=== PATIENT | female | born 1945 | race American Indian/Alaskan Native ===

== ENCOUNTER 2018-01-23 16:45 | Emergency (ER) | payer MEDICARE ==
[2018-01-23 16:51] VITALS: BMI 32.9
[2018-01-23 16:54] VITALS: BP 174/82; PULSE 82; RESP 18; TEMP 98.8; O2SAT 97
--- NOTE | 2018-01-23 17:04 | C.PDOC ---
History Of Present Illness 72 y/o female presents to the ER complaining of an itchy rash localized in the left lower abdomen region for 3 days. She states initially the rash was not painful but it has now become painful. The patient admits to a history of chicken pox as a child. She denies any associated nausea, vomiting, or fever. Time Seen by Provider: 01/23/18 16:58 Chief Complaint (Nursing): Abnormal Skin Integrity History Per: Patient History/Exam Limitations: no limitations Onset/Duration Of Symptoms: Days Location Of Injury: Left: Abdomen (lower) Quality Of Symptoms: Painful, Itching Past Medical History Vital Signs: Last Vital Signs Temp 98.8 F 01/23/18 16:51 Pulse 82 01/23/18 16:51 Resp 18 01/23/18 16:51 BP 174/82 H 01/23/18 16:51 Pulse Ox 97 01/23/18 17:46 - Medical History PMH: Asthma, HTN Other Surgeries: Herniorrhaphy Family History: States: Unknown Family Hx - Social History Hx Tobacco Use: No Hx Alcohol Use: No Hx Substance Use: No - Immunization History Hx Tetanus Toxoid Vaccination: No Hx Influenza Vaccination: No Hx Pneumococcal Vaccination: No Review Of Systems Except As Marked, All Systems Reviewed And Found Negative. Constitutional: Negative for: Fever Gastrointestinal: Positive for: Abdominal Pain (and itchy). Negative for: Nausea, Vomiting Skin: Positive for: Rash (localized in the left lower abdomen ) Physical Exam - Physical Exam Appears: Well, Non-toxic, No Acute Distress Skin: Warm, Dry, Rash (Vesicles in various states of emerging and resolving; rash localized in the left lower abdomen ) Head: Atraumatic, Normacephalic Eye(s): bilateral: PERRL, EOMI Ear(s): Bilateral: Normal Oral Mucosa: Moist Neck: Normal ROM Chest: Symmetrical Cardiovascular: Rhythm Regular, No Murmur Respiratory: Normal Breath Sounds, No Rales, No Rhonchi, No Wheezing Gastrointestinal/Abdominal: Normal Exam, Bowel Sounds, Soft, No Tenderness Extremity: Bilateral: Atraumatic, Normal Color And Temperature, Normal ROM Pulses: Left Radial: Normal, Right Radial: Normal Neurological/Psych: Oriented x3, Normal Speech Gait: Steady ED Course And Treatment O2 Sat by Pulse Oximetry: 97 (RA) Pulse Ox Interpretation: Normal Medical Decision Making Medical Decision Making: Impression: 72 y/o female with itchy/painful rash on left lower abdomen L lower abd dermatome Zoster. Disposition Doctor Will See Patient In The: Office Counseled Patient/Family Regarding: Studies Performed, Diagnosis - Disposition Referrals: Macrina Cho MD [Medical Doctor] - Disposition: HOME/ ROUTINE Disposition Time: 17:08 Condition: GOOD Additional Instructions: Calamine lotion as needed Lidocaine patches Acyclovir 800 mg (antiviral) 5x/day for 10 days Prednisone Taper- reduces inflammation and irritation of the nerves pepcid 20 mg @ night to prevent stomach irritation from the Prednisone ( provokes gastritis) Tramadol 50 mg tabs (narcotic pain relievers) as needed for more severe pain Follow-up with Dr. Cho for eval as soon as possible. He will continue to manage your Shingles pain and treatment. Prescriptions: Acyclovir [Zovirax] 800 mg PO 5XD 10 Days tablet Prednisone [Deltasone] 20 mg PO DAILY #23 tablet traMADol [Ultram] 50 mg PO Q6H PRN #20 tab PRN Reason: pain Instructions: Shingles (DC) Forms: [facility] BAG (Occitan) - Clinical Impression Clinical Impression: Herpes zoster - Scribe Statement The provider has reviewed the documentation as recorded by the Scribe (Karishma Ruiz) Provider Attestation: All medical record entries made by the Scribe were at my direction and personally dictated by me. I have reviewed the chart and agree that the record accurately reflects my personal performance of the history, physical exam, medical decision making, and the department course for this patient. I have also personally directed, reviewed, and agree with the discharge instructions and disposition.
== END 2018-01-23 17:54 | disposition home or self-care (01) ==
LOC: C.ER 16:45
DX: B02.9 Zoster without complications (principal)